=== PATIENT | male | born 2000 | race Caucasian/White ===

== ENCOUNTER 2024-02-12 10:08 | Emergency (ER) | payer SELFPAY ==
[~2024-02-12] VITALS: Ht 175.9 cm; Wt 67.3 kg
[2024-02-12 10:28] VITALS: BP 116/78; PULSE 73; RESP 16; TEMP 97.5; O2SAT 100
[2024-02-12] MEDS ORDERED: cefTRIAXone 1,000 MG VIAL ONE (11:21)
[2024-02-12] MEDS ORDERED: LIDOCAINE MPF 1% 5 ML ONE (11:21)
[2024-02-12] MEDS ORDERED: CEPH-588 PO (11:29)
[2024-02-12] MEDS: cefTRIAXone 1,000 MG in LIDOCAINE MPF 1% 2.1 ML IM ONE (11:39)
[2024-02-12] MEDS: LIDOCAINE MPF 1% 10 MG/ML VIAL INJ ONE (11:40)
[2024-02-12] MEDS: KETOROLAC 30 MG/ML VIAL IM ONE (11:56)
[2024-02-12] MEDS ORDERED: MUPIROCIN 2% OINT 22 GM TUBE TP SCH (12:05)
== END 2024-02-12 12:33 | disposition home or self-care (01) ==
LOC: MED 10:08
DX: L60.0 Ingrowing nail (principal); L08.9 Local infection of the skin and subcutaneous tissue, unspecified; Z79.899 Other long term (current) drug therapy
CPT/HCPCS: 11730; 90471; 90715; 96372; 99284; J0696; J1885; J2003